=== PATIENT | female | born 1990 | race African-American/Black ===

== ENCOUNTER 2018-11-09 11:39 | Emergency (ER) | payer OTHER ==
[~2018-11-09] VITALS: Ht 165.1 cm; Wt 59.0 kg
[2018-11-09 11:45] VITALS: BP 122/84
--- NOTE | 2018-11-09 12:13 | NUR ---
Devyn ambulated to bed 7. RN evaluating patient at bedside.
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
--- NOTE | 2018-11-09 12:20 | NUR ---
DR. PATINO AT BEDSIDE EVALUATING PT
--- NOTE | 2018-11-09 12:28 | NUR ---
PT LEAVING TO CT
--- NOTE | 2018-11-09 12:50 | NUR ---
return from ct via [facility]
[2018-11-09] MEDS ORDERED: KETOROLAC 60 MG/2 ML VIAL IM ONE (13:00)
--- NOTE | 2018-11-09 13:07 | NUR ---
notified , pt also complaining of hip pain---no further imaging required at this time as per MD. medicated for pain control ; will continue to observe for pain control
--- NOTE | 2018-11-09 13:46 | NUR ---
Patient discharged with v/s stable. Written and verbal after care instructions given and explained. Patient alert, oriented and verbalized understanding of instructions. Wheel Chair Assisted with to car. All questions addressed prior to discharge. ID band removed. Patient advised to follow up with PMD. Rx of NORCO,MOTRIN given. Patient educated on indication of medication including possible reaction and side effects. Opportunity to ask questions provided and answered.
[2018-11-09 13:47] VITALS: BP 122/70
== END 2018-11-09 13:46 | disposition home or self-care (01) ==
LOC: MED 11:39
DX: S00.83XA Contusion of other part of head, initial encounter (principal); S80.02XA Contusion of left knee, initial encounter; S70.01XA Contusion of right hip, initial encounter; F17.200 Nicotine dependence, unspecified, uncomplicated; M79.7 Fibromyalgia; Z90.710 Acquired absence of both cervix and uterus; W05.2XXA Fall from non-moving motorized mobility scooter, initial encounter; Y93.89 Activity, other specified; Y92.89 Other specified places as the place of occurrence of the external cause; Y99.8 Other external cause status
CPT/HCPCS: 70450; 70486; 81025; 96372; 99284; J1885